=== PATIENT | female | born 1975 | race Caucasian/White ===

== ENCOUNTER → 2022-04-23 11:08 | Outpatient (BNVA) | payer SELFPAY | PROVIDERS: Visit Provider Nurse Practitioner Family | DX: R39.9 Unspecified symptoms and signs involving the genitourinary system (principal) | CPT/HCPCS: 81000; 87077; 87086; 87184 ==

== ENCOUNTER 2023-04-06 07:51 | Emergency (ER) | payer OTHER, SELFPAY ==
[2023-04-06 08:24] VITALS: BP 176/102; PULSE 80; RESP 18; O2SAT 94
--- NOTE | 2023-04-06 08:35 | XRR_ITS ---
PROCEDURE INFORMATION: Exam: XR Left Knee Exam date and time: 04/06/2023 8:45 AM Age: 47 years old Clinical indication: Pain; Knee; Left TECHNIQUE: Imaging protocol: Radiologic exam of the left knee. Views: 3 views. COMPARISON: No relevant prior studies available. FINDINGS: Bones/joints: Slight medial subluxation of the femur on the tibia. Joint spaces are poorly evaluated due to positioning. Bulky tricompartmental osteophytes. No acute fracture. No visible joint effusion. Soft tissues: Unremarkable. XR/XR knee LT 3V* [id number] IMPRESSION: 1. No acute findings. 2. Tricompartmental osteoarthritis.
--- NOTE | 2023-04-06 09:13 | PC.NURSE ---
assumed pt care at 0900 from SANDY Davis
--- NOTE | 2023-04-06 09:23 | W.ED.EXTPRO ---
HPI - Extremity Problem General: Chief complaint: Extremity Problem,Nontraumatic Stated complaint: Left knee pain Time Seen by Provider: 04/06/23 07:52 Source: patient History of Present Illness: 47-year-old female presents emergency room with left knee pain for the last 3 weeks. No specific trauma she states she was lifting something and felt a popping sensation and it got significantly worse not this occurred yesterday. She has a difficult time walking on it no previous surgeries or injuries to that knee. No chest pain no shortness of breath. MD Complaint: joint pain Review of Systems Musc: Reports: joint pain; Denies: joint swelling [facility] ED PFSH: Social History Smoking and tobacco/nicotine status: never used tobacco/nicotine Physical Exam Narrative: EXAM NARRATIVE: Difficult to examine knee due to acute pain. Due to body habitus unable to appreciate if there is any joint effusions attempted to do test for laxity in the joint however patient was not able to tolerate. Const: COMMON NORMALS: no acute distress GENERAL APPEARANCE: cooperative and comfortable ORIENTATION/CONSCIOUSNESS: Yes awake, Yes oriented to person, Yes oriented to place and Yes oriented to time HENMT: COMMON NORMALS: normocephalic, atraumatic and hearing grossly normal bilaterally HEAD & SCALP: normocephalic and atraumatic Extremity: COMMON NORMALS: normal to inspection, capillary refill normal, no clubbing, cyanosis or edema, no calf tenderness and no pedal edema Neuro: SENSORIUM/ORIENTATION: Yes oriented to person, Yes oriented to place and Yes oriented to time Skin: COMMON NORMALS: no rashes or lesions noted GENERAL SKIN EXAM: no rashes or lesions noted Course Vital Signs: Vital signs: Vital Signs Pulse Rate 80 04/06/23 08:24 Respiratory Rate 18 04/06/23 08:24 Blood Pressure 176/102 04/06/23 08:24 Pulse Oximetry 94 04/06/23 08:24 Oxygen Delivery Me thod Room Air 04/06/23 08:24 MDM - Extremity (Nontraumatic) Medical Decision Making Significant arthritic changes of the left knee but no acute fractures. Placed in immobilizer and nonweightbearing on crutches refer to Ortho and discharged home with diclofenac Medical Records I reviewed the patient's medical records. Lab Data Radiology Impressions Knee X-Ray 04/06/23 08:35 IMPRESSION: 1. No acute findings. 2. Tricompartmental osteoarthritis. All radiology interpretation(s) finalized by discharge Discharge Plan Discharge Patient Disposition: Home Clinical Impression: Left knee sprain Condition: Stable Prescriptions: New diclofenac sodium 75 mg tablet,delayed release (DR/EC) 75 mg PO Q12H PRN (Reason: pain) Qty: 20 0RF Discharge Orders: Discharge ED (Routine); Ordered 04/06/23 Ordered By: Kvng Petty Discharge Diet: Usual diet Discharge Activity: Increase activity as tolerated Patient Instructions: Opioid Safety, Pain Management Activity Restrictions/Additional Instructions: Thank you for choosing [facility] for your healthcare needs today. Please realize this is an emergency room and that we are providing you with a medical screening exam and this may not be complete and all inclusive of all the testing and or work up that you may need to determine your ailment or severity of your illness. It is very important that you follow up as instructed or that you return to the Emergency Department should you have concerns or if your condition changes or worsens in any way. Case management make arrangements for you to follow-up with orthopedics Coding Level of Care Code ED [employer] for Primo Hayes
[2023-04-06] MEDS: ketorolac 30 mg/mL INJ 60 MG IM (10:20)
--- NOTE | 2023-04-08 18:22 | DCPLANNER ---
Message was sent to ortho on 04/08/23 at [id number]. Clinic to contact patient
== END 2023-04-06 10:40 | disposition home or self-care (01) ==
PROVIDERS: Emergency Provider Family Medicine
DX: S83.92XA Sprain of unspecified site of left knee, initial encounter (principal); X50.0XXA Overexertion from strenuous movement or load, initial encounter
CPT/HCPCS: 29530; 73562; 96372; 99284; J1885

== ENCOUNTER → 2023-04-12 10:29 | Outpatient (BNVA) | payer OTHER, SELFPAY | PROVIDERS: Visit Provider Family Medicine Adult Medicine | DX: R03.0 Elevated blood-pressure reading, without diagnosis of hypertension (principal); E66.01 Morbid (severe) obesity due to excess calories; E78.5 Hyperlipidemia, unspecified | CPT/HCPCS: 80053; 80061; 84443; 85025 ==

== ENCOUNTER → 2024-01-31 15:41 | Outpatient (BNVA) | payer OTHER, SELFPAY | PROVIDERS: PCP Family Medicine Adult Medicine; Visit Provider Nurse Practitioner Family | DX: J02.9 Acute pharyngitis, unspecified (principal) | CPT/HCPCS: 87880 ==

== ENCOUNTER 2024-10-16 16:21 | Outpatient (CLI) | payer OTHER, SELFPAY ==
--- NOTE | 2024-10-16 16:28 | XRR_ITS ---
PROCEDURE INFORMATION: Exam: XR Left Knee Exam date and time: 10/16/2024 4:34 PM Age: 49 years old Clinical indication: Pain; Knee; Left; Additional info: M25.562 - pain in left knee TECHNIQUE: Imaging protocol: Radiologic exam of the left knee. Views: 3 views. COMPARISON: CR XR knee LT 3V* [id number] 04/06/2023 8:45 AM FINDINGS: Bones/joints: There is severe degenerative change with loss of joint space and osteophyte formation. No acute fracture or dislocation. No acute or aggressive bone lesion noted. No evidence of bone destruction. Findings are mildly progressed from prior. Soft tissues: Unremarkable. XR/XR knee LT 3V* [id number] IMPRESSION: 1. No acute findings. 2. Advanced for age severe DJD.
--- NOTE | 2024-10-16 16:28 | XRR_ITS ---
PROCEDURE INFORMATION: Exam: XR Right Foot Exam date and time: 10/16/2024 4:34 PM Age: 49 years old Clinical indication: Pain; Foot; Right; Additional info: M79.671 - pain in right foot TECHNIQUE: Imaging protocol: Radiologic exam of the right foot. Views: 3 or more views. COMPARISON: No relevant prior studies available. FINDINGS: Bones/joints: Mild 1st MTP DJD. Moderate plantar calcaneal enthesophyte. Marked degenerative changes seen in the midfoot with large dorsal spurs. Tibiotalar osteophyte also noted. No bone erosion evident. Soft tissues: Nonspecific forefoot soft tissue swelling. No acute fracture or dislocation. XR/XR foot RT min 3V* [id number] IMPRESSION: Degenerative changes and forefoot soft tissue swelling. No acute pathology.
== END 2024-10-16 16:22 | disposition home or self-care (01) ==
LOC: RAD 16:25
PROVIDERS: PCP Nurse Practitioner Family; Visit Provider Nurse Practitioner Family
DX: M17.12 Unilateral primary osteoarthritis, left knee (principal); M19.071 Primary osteoarthritis, right ankle and foot
CPT/HCPCS: 73562; 73630

== ENCOUNTER → 2024-11-16 09:28 | Outpatient (BNVA) | payer OTHER, SELFPAY | PROVIDERS: Visit Provider Specialist | DX: M17.12 Unilateral primary osteoarthritis, left knee (principal); E66.01 Morbid (severe) obesity due to excess calories; Z68.43 Body mass index [BMI] 50.0-59.9, adult | CPT/HCPCS: 73560; 73565 ==

== ENCOUNTER → 2024-12-29 14:12 | Outpatient (BNVA) | payer OTHER, SELFPAY | PROVIDERS: PCP Nurse Practitioner Family; Visit Provider Nurse Practitioner Family | DX: R53.83 Other fatigue (principal); I10 Essential (primary) hypertension; E66.01 Morbid (severe) obesity due to excess calories; Z68.43 Body mass index [BMI] 50.0-59.9, adult | CPT/HCPCS: 80053; 80061; 84443; 85025 ==